=== PATIENT | female | born 1945 | race Caucasian/White ===

== ENCOUNTER 2020-05-23 09:53 | Emergency (ER) | payer MEDICARE, SELFPAY ==
--- NOTE | ~2020-05-23 | XR_ITS ---
EXAMINATION: XR chest 2V DATE: 05/23/2020 10:53 INDICATION: Dizziness TECHNIQUE: PA and lateral views of the chest were obtained. COMPARISON: None FINDINGS: Upper expansion of the lungs with flattening of the diaphragm. No focal airspace opacities, pulmonary edema, pleural effusion or pneumothorax. The cardiomediastinal silhouette is normal. Mild thoracic s pondylosis. IMPRESSION: 1. Hyperexpansion of of the clear lungs which could be related to age or COPD. Reviewed, dictated and finalized at location A.
--- NOTE | ~2020-05-23 | CT_ITS ---
EXAMINATION: CTA BRAIN/CAROTID DATE: 05/23/2020 13:22 INDICATION: Dizziness TECHNIQUE: Computed tomographic angiography (CTA) of the head and neck was performed with 100 mL Omni paque-350 intravenous contrast. Multiplanar reconstructions and maximum intensity projection 3D-recon structions of the carotid arteries and of the intracranial arteries were created by the technologist on a separate workstation. Precontrast CT of the head was also obtained. Automated exposure control and iterative reconstruction technique were employed.The dose-length product was 1564.52 mGy-cm. COMPARISON: None. FINDINGS: Carotid arteries: There is minimal atherosclerotic plaque with 0% stenosis of the right carotid bulb relative to normal distal artery lumen diameter (NASCET criteria). There is minimal atherosclerotic plaque with 0% sten osis of the left carotid bulb relative to normal distal artery lumen diameter. Mild biapical pleural- parenchymal scarring. Moderate cervical spondylosis. Cervical soft tissues are unremarkable. Head: No acute intracranial hemorrhage, acute infarction or abnormal extra axial fluid collection. Ventricl es are normal and symmetric. No mass/mass effect. Large expansile periapical erosion at the anterior left maxillary molar which appears to have eroded and is now in contiguity with the nearly completely opacified left maxillary sinus. There is increased attenuation along the surface of the thickened mu cosa and which along with thickened sclerotic ramos to the left maxillary sinus would be consistent w ith chronic sinusitis. The orbits and mastoid air cells are normal. Intracranial arteries There is no hemodynamically significant stenosis in the vertebral, basilar and internal carotid arter ies. Vertebral arteries are codominant. There are no aneurysms identified. Both A1 and P1 segments a re patent. There are patent anterior communicating and left posterior communicating arteries. Cerebra l arterial arborization appears symmetric. IMPRESSION: 1. 0% stenosis of the right and left carotid bulbs relative to normal distal artery lumen diameter (N ASCET criteria). 2. Normal brain with normal cerebral angiogram. 3. Chronic left maxillary sinusitis which may be related to erosion into the sinus of a large periapi sissy lucency surrounding the posterior most left maxillary molar. Reviewed, dictated and finalized at location A. IMPRESSION: 1. 0% stenosis of the right and left carotid bulbs relative to normal distal ar marco lumen diameter (NASCET criteria). 2. Normal brain with normal cerebral angiogram. 3. Chronic left maxillary sinusitis which may be related to erosion into the si nus of a large periapical lucency surrounding the posterior most left maxillary molar.
[2020-05-23 10:01] VITALS: BP 129/65; PULSE 90; RESP 18; TEMP 36.8; O2SAT 99
--- NOTE | 2020-05-23 10:31 | ECG_ITS ---
Measurements Intervals [place] Rate: 70 P: 71 [place]: 161 QRS: 50 QRSD: 90 T: 47 QT: 376 QTc: 406 Interpretive Statements SINUS RHYTHM NORMAL ECG Electronically Signed On 05-23-2020 12:57:05 CDT by Pb Gupta D.O.
[2020-05-23 11:10] LABS: Basophils Absolute Auto 0.1 K/mm3 (0.0-0.1); Basophils Percent Auto 0.8 % (0.2-1.2); Eosinophils Absolute Auto 0.1 K/mm3 (0-0.3); Eosinophils Percent Auto 1.8 % (0-4.4); Hematocrit 40.7 % (37.0-47.0); Immature Granulocyte Absolute 0.02 K/mm3 (0.00-0.031); Immature Granulocyte Percent A 0.3 % (0-0.5); Lymphocytes Absolute Auto 1.61 K/mm3 (0.9-3.2); Lymphocytes Percent Auto 24.8 % (18.3-44.2); Mean Corpuscular HGB Conc 31.9 g/dl (32-36); Mean Corpuscular Hemoglobin 31.6 pg (26-34); Mean Corpuscular Volume 98.8 fl (80-100); Mean Platelet Volume 10.9 fl (7.4-10.4); Monocytes Absolute Auto 0.8 K/mm3 (0.1-0.6); Monocytes Percent Auto 12.5 % (2.6-8.5); Neutrophils Absolute Auto 3.9 K/mm3 (1.3-6.7); Neutrophils Percent Auto 59.8 % (45.5-73.1); Platelet Count Result 291 k/mm3 (150-375); Red Blood Count 4.12 M/mm3 (4.2-5.4); White Blood Count 6.5 K/mm3 (4.5-10.0)
[2020-05-23 11:23] LABS: Blood Urea Nitrogen 14 mg/dL (7-17); Calcium 9.1 mg/dL (8.4-10.2); Carbon Dioxide 25 mmol/L (22-30); Chloride 107 mmol/L (98-107); Estimated CRCL calculation 71 ml/min; Estimated Glomerular Filt Rate > 60; Glucose 122 mg/dL (65-105); Potassium 3.9 mmol/L (3.4-5.0); Sodium 139 mmol/L (137-145)
[2020-05-23 11:44] VITALS: BP 146/80; PULSE 87; RESP 18; TEMP 36.4; O2SAT 99
[2020-05-23 11:49] VITALS: BP 134/70; PULSE 78
[2020-05-23 11:50] VITALS: BP 146/80; BP 154/72; PULSE 87; PULSE 99
--- NOTE | 2020-05-23 12:39 | ED.GENADULT ---
HPI - General Adult General Chief complaint: Dizziness Stated complaint: dizziness Time Seen by Provider: 05/23/20 12:12 History of Present Illness HPI narrative: Patient is a 74 y/o female complaining of moderate dizziness for last 2 days. She states that she feels unsteady and feels like she is having trouble walking. She did not pass out or fall. She had some room spinning sensation 2 days ago, but not currently. There is no alleviating or exacerbating factor. She has no headache, neck pain, focal weakness or numbness. Related Data Allergies Allergy/AdvReac Type Severity Reaction Status Date / Time Penicillins Allergy Rash Verified 05/23/20 11:24 Review of Systems Constitutional: Constitutional: Denies chills, Denies fever(s), Denies headache(s) and Denies weakness Eyes: Eyes: Denies blurry vision ENT: Denies headache(s) and Denies neck pain Cardiovascular: Cardiovascular: Denies chest pain and Denies dyspnea Respiratory: Respiratory: Denies cough and Denies dyspnea Gastrointestinal: Gastrointestinal: Denies abdominal pain, Denies diarrhea, Denies nausea and Denies vomiting Genitourinary: Genitourinary: Denies hematuria and Denies dysuria Musculoskeletal: Musculoskeletal: Denies back pain and Denies neck pain Neurologic: Denies headache(s) and Denies weakness [facility] Social History Social History Gender identity (if verbalized by the patient): Female Exam Const: General: no acute distress and well developed Orientation/consciousness: oriented to person, oriented to place, oriented to time and patient oriented x3 HENMT: Head: normocephalic Ears: external ears normal General nose exam: Normal external nose present Eyes: General: appearance normal, both eyes and all related structures Conjunctivae: conjunctivae normal Neck: Neck: normal visual inspection and full ROM Chest: Chest palpation & inspection: normal inspection of the chest and no tenderness Resp: Effort & Inspection: normal respiratory effort and able to speak in complete sentences Cardio: Rate: regular rate Rhythm: regular rhythm GI: GI Palp: No abdominal tenderness and Yes Soft to palpation Skin: General skin exam: normal color and turgor normal Neuro: General: oriented to person, oriented to place, oriented to time and patient oriented x3 Cranial nerves: Yes CN's II-XII intact bilaterally Cognition (Neuro): normal cognition Speech: normal speech Motor exam (neuro): 5/5 motor strength present throughout Sensory Exam: normal sensation Coordination: [id number] test normal and [id number] test normal Extrem: General: normal to inspection, full ROM and no pedal edema Psych: Appearance: grossly normal Mental Status: mental status grossly normal Affect: normal affect Course Vital Signs Vital signs: Vital Signs Temperature 36.8 C 05/23/20 10:01 Pulse Rate 90 05/23/20 10:01 Respiratory Rate 18 05/23/20 10:01 Blood Pressure 129/65 05/23/20 10:01 Pulse Oximetry 99 05/23/20 10:01 Temperature 36.4 C L 05/23/20 13:31 Pulse Rate 63 05/23/20 13:31 Respiratory Rate 13 05/23/20 13:31 Blood Pressure 151/69 H 05/23/20 13:31 Pulse Oximetry 100 05/23/20 13:31 Medical Decision Making Vital Signs Vital Signs: Vital Signs Temperature 36.8 C 05/23/20 10:01 Pulse Rate 90 05/23/20 10:01 Respiratory Rate 18 05/23/20 10:01 Blood Pressure 129/65 05/23/20 10:01 Pulse Oximetry 99 05/23/20 10:01 Temperature 36.4 C L 05/23/20 13:31 Pulse Rate 63 05/23/20 13:31 Respiratory Rate 13 05/23/20 13:31 Blood Pressure 151/69 H 05/23/20 13:31 Pulse Oximetry 100 05/23/20 13:31 Lab Data Result diagrams: 05/23/20 11:03 05/23/20 11:03 Labs: Lab Results 05/23/20 05/23/20 Range/Units 11:03 11:03 WBC 6.5 (4.5-10.0) K/mm3 RBC 4.12 L (4.2-5.4) M/mm3 Hgb 13.0 (12.0-15.0) g/dL Hct 40.7
[2020-05-23] MEDS: SODIUM CHLORIDE 0.9% IV 1,000 ML 999 ML IV CONT (13:25)
[2020-05-23] MEDS: MECLIZINE HCL 25 MG TABLET PO (13:25)
[2020-05-23 13:31] VITALS: BP 151/69; PULSE 63; RESP 13; TEMP 36.4; O2SAT 100
[2020-05-23 14:59] VITALS: BP 158/89; PULSE 80; RESP 15; TEMP 37; O2SAT 100
== END 2020-05-23 14:59 | disposition home or self-care (01) ==
PROVIDERS: Emergency Medicine; Emergency Provider Emergency Medicine; PCP Nurse Practitioner
DX: R42 Dizziness and giddiness (principal)
CPT/HCPCS: 36415; 70496; 70498; 71046; 80048; 85025; 93005; 96360; 99284; A9270; J7030; Q9967

== ENCOUNTER 2023-05-17 10:50 | Emergency (ER) | payer MEDICARE, SELFPAY ==
[2023-05-17 11:05] VITALS: BP 148/72; PULSE 72; RESP 18; TEMP 36.3; O2SAT 100
--- NOTE | 2023-05-17 11:08 | ED.DIZZY ---
HPI - Dizziness General Chief Complaint: Dizziness Stated Complaint: dizziness Time Seen by Provider: 05/17/23 11:08 Source: patient Mode of arrival: ambulatory Limitations: no limitations History of Present Illness HPI Narrative: 77-year-old female with history of MS presents with complaint of dizziness for the past 5 days. Patient reports no previous history of similar dizziness. States that she is very active and has been busy. She sat outside for several hours for a graduation republican, dizziness started the next day. States that she is drinking plenty of water and does not feel that is dehydration. She denies headache, ear pain, sinus symptoms. Denies nausea vomiting diarrhea. When ambulatory patient is grabbing on to ramos, furniture to keep her balance. When asked if she feels that she is spinning of the room spinning she states both . She is alert and talkative. Denies numbness, weakness to extremities. No slurred speech. She sees a neurologist for her MS and her next appointment is in June. All systems reviewed and negative except as noted above. Related Data Home Medications Medication Instructions Recorded Confirmed calcium carbonate 600 mg calcium 600 mg PO BID 11/03/21 05/17/23 (1,500 mg) tablet (Calcium) lovastatin 40 mg tablet 40 mg PO DAILY 11/03/21 05/17/23 mecobalamin (vitamin B12) 1,000 2,000 mcg PO .COMPLEX 11/03/21 05/17/23 mcg chewable tablet (B12 Active) teriflunomide 14 mg tablet 14 mg PO DAILY 05/17/23 05/17/23 (Aubagio) Allergies Allergy/AdvReac Type Severity Reaction Status Date / Time Penicillins Allergy Rash Verified 05/17/23 11:58 Review of Systems Review of Systems: CONSTITUTIONAL: Denies fever, chills, or sweats. EYES: Denies visual changes, redness, or discharge. ENT: Denies rhinorrhea, congestion, sore throat, or otalgia. CARDIOVASCULAR: Denies chest pain, palpitations, or edema. RESPIRATORY: Denies cough or dyspnea. GASTROINTESTINAL: Denies abdominal pain, nausea, vomiting, or diarrhea. GENITOURINARY: Denies dysuria or hematuria. SKIN: Denies rash or itching. MUSCULOSKELETAL: Denies back pain, joint pain, or myalgia. NEUROLOGIC: Denies headache, numbness, or weakness. Reports dizziness. PSYCHIATRIC: Denies anxiety or depression. All other systems reviewed are negative, except as documented in HPI. 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 Gender identity (if verbalized by the patient): Female Comments At time of signature, agree with nursing past medical, surgical, social and family history. There is no relevant family history pertinent to the presenting complaint. Exam Narrative: GENERAL: This is a well-nourished, well-developed patient, in no apparent distress. HEAD: normocephalic, atraumatic. EYES: PERRL. Sclera clear/white. Normal extraocular motions. EARS: External ears normal, auditory canals clear and without drainage, TMs normal without perforation. Hearing grossly intact. NOSE: External nose normal with no obvious nasal discharge, nares without redness, no rhinorrhea. THROAT: Mucous membranes moist, posterior pharynx clear. NECK: Neck supple, non-tender without lymphadenopathy, masses or thyromegaly. CARDIOVASCULAR: Regular rate and rhythm without murmurs, gallops, or rubs. RESPIRATORY: Clear to auscultation. Breath sounds equal bilaterally. No wheezes, rales, or rhonchi. SKIN: warm, Dry, intact with no suspicious lesions or rash, good texture and turgor. NEURO: awake, alert, and oriented to person, place and time. There were no o
--- NOTE | 2023-05-17 11:19 | ECG_ITS ---
Measurements Intervals [place] Rate: 77 P: 68 [place]: 156 QRS: 35 QRSD: 90 T: 42 QT: 382 QTc: 435 Interpretive Statements SINUS RHYTHM RIGHT ATRIAL ENLARGEMENT BORDERLINE ECG COMPARED TO ECG 05/23/2020 10:31:41 NO SIGNIFICANT CHANGES Electronically Signed On 05-18-2023 16:53:09 CDT by Grabiel Herrmann M.D.
== END 2023-05-17 11:32 | disposition short-term general hospital (02) ==
PROVIDERS: Emergency Provider Nurse Practitioner Family; PCP Nurse Practitioner Family
DX: R42 Dizziness and giddiness (principal); M17.12 Unilateral primary osteoarthritis, left knee; G35 Multiple sclerosis
CPT/HCPCS: 93005; 99213; G0463

== ENCOUNTER 2023-05-17 11:53 | Emergency (ER) | payer MEDICARE, SELFPAY ==
[2023-05-17] VITALS (9 sets, daily range): BP systolic 130–197; BP diastolic 66–89; PULSE 70–88; RESP 15–20; TEMP 36.2; O2SAT 99–100
--- NOTE | ~2023-05-17 | XR_ITS ---
EXAMINATION: XR chest 2V DATE: 05/17/2023 15:53 INDICATION: Weakness and dizziness TECHNIQUE: PA and lateral views of the chest are obtained. COMPARISON: 05/23/2020 FINDINGS: The lungs are free of acute opacities. There is symmetric scarring of the lung apices. No p leural effusion or pneumothorax. The cardiomediastinal silhouette is normal. There is moderate thorac ic spondylosis. IMPRESSION: 1. No acute cardiopulmonary abnormality. Reviewed, dictated and finalized at location L.
--- NOTE | ~2023-05-17 | CT_ITS ---
EXAMINATION: CTA BRAIN/CAROTID DATE: 05/17/2023 14:55 INDICATION: Vertigo. Off balance. TECHNIQUE: Computed tomographic angiography (CTA) of the head and neck was performed with 100 mL Omni paque-350 intravenous contrast. Multiplanar reconstructions and maximum intensity projection 3D-recon structions of the carotid arteries and of the intracranial arteries were created by the technologist on a separate workstation. Precontrast CT of the head was also obtained. Automated exposure control and iterative reconstruction technique were employed.The dose-length product was 1472.39 mGy-cm. COMPARISON: 05/23/2020 FINDINGS: Carotid arteries: Normal caliber aortic arch with no dissection. There is minimal atherosclerotic plaque with 0% stenos is of the right carotid bulb relative to normal distal artery lumen diameter (NASCET criteria). There is moderate amount of atherosclerotic plaque with 0% stenosis of the left carotid bulb relative to n ormal distal artery lumen diameter. Mild biapical pleural-parenchymal scarring. Cervical soft tissues are unremarkable. Moderate cervical spondylosis. Head: No acute intracranial hemorrhage, acute infarction or abnormal extra axial fluid collection. Ventricl es are normal and symmetric. No mass/mass effect. No abnormally enhancing brain lesions on the postco ntrast imaging. Changes of bilateral intraocular lens replacement. The orbits and mastoid air cells a re normal. Again seen are thickened sclerotic ramos at the margins of the left maxillary sinus which demonstrates marked mucosal thickening and small amount of more central fluid/mucus consistent with c hronic sinusitis. Again seen is a large periapical erosion at the posterior most left maxillary molar s. Intracranial arteries Minimal atherosclerotic plaque at the right carotid siphon. There is no hemodynamically significant s tenosis in the vertebral, basilar and internal carotid arteries. Vertebral arteries are codominant. T here are no aneurysms identified. Both A1 and P1 segments are patent. Patent anterior communicating and left posterior communicating cerebral arteries. Cerebral arterial arborization appears symmetric. IMPRESSION: 1. Small amount of atherosclerotic plaque with 0% stenosis of the right and left carotid bulbs relati ve to normal distal artery lumen diameter (NASCET criteria). 2. Normal brain with normal cerebral CT angiogram. 3. Chronic left maxillary sinusitis which may be related to erosion at the sinus of a large periapica l lucency surrounding the posterior most left maxillary molar. Reviewed, dictated and finalized at location A. IMPRESSION: 1. Small amount of atherosclerotic plaque with 0% stenosis of the right and lef t carotid bulbs relative to normal distal artery lumen diameter (NASCET criteri a). 2. Normal brain with normal cerebral CT angiogram. 3. Chronic left maxillary sinusitis which may be related to erosion at the sinu s of a large periapical lucency surrounding the posterior most left maxillary m olar.
--- NOTE | 2023-05-17 12:01 | ECG_ITS ---
Measurements Intervals [place] Rate: 70 P: 62 [place]: 165 QRS: 24 QRSD: 86 T: 45 QT: 380 QTc: 411 Interpretive Statements SINUS RHYTHM WITHIN NORMAL LIMITS COMPARED TO ECG 05/17/2023 11:27:41 NO SIGNIFICANT CHANGES Electronically Signed On 05-18-2023 16:54:46 CDT by Grabiel Herrmann M.D.
[2023-05-17 14:01] LABS: Appearance Urine Clear (Clear); Bacteria Urine 4+ /hpf; Bilirubin Urine Negative (Negative); Blood Urine Negative (Negative); Color Urine Yellow (Yellow); Glucose Urine UA Negative (Negative); Ketones Urine Negative (Negative); Leukocyte Esterase Ur 1+ LEU/UL (Negative); Need Manual Microscopic Reviewed; Nitrate Urine Positive (Negative); Non Pathogenic Casts 0-2; Protein Urine Negative (Negative); RBC Urine 0-2 /hpf (0-2); Specific Grav Ur 1.011 (1.001-1.035); Squamous Epithelial Cell Urine None seen /hpf (Few); Urobilinogen Urine 0.2 mg/dL (<2.0); WBC Urine 0-5 /hpf; pH Urine 6.5 (5.0-9.0)
[2023-05-17 14:02] LABS: Add Urine Microscopic? YES
--- NOTE | 2023-05-17 14:12 | ED.DIZZY ---
HPI - Dizziness General Chief Complaint: Dizziness Stated Complaint: dizzy Time Seen by Provider: 05/17/23 13:48 History of Present Illness HPI Narrative: Patient is a 77-year-old female with a history of multiple sclerosis presenting with dizziness. Patient states that for the last 4 to 5 days she has had vertigo especially with positional changes. States that she notices it most whenever she gets up at night. States that she has also been feeling somewhat off balance. She went to urgent care today who advised that she come to the ER for blood work. Currently, she denies complaints. No numbness or weakness. No facial droop. No speech changes. No pain. No recent injuries. States that she has been outside in the heat a lot with her granddaughter who is visiting. Related Data Home Medications Medication Instructions Recorded Confirmed calcium carbonate 600 mg calcium 600 mg PO BID 11/03/21 05/17/23 (1,500 mg) tablet (Calcium) lovastatin 40 mg tablet 40 mg PO DAILY 11/03/21 05/17/23 mecobalamin (vitamin B12) 1,000 2,000 mcg PO .COMPLEX 11/03/21 05/17/23 mcg chewable tablet (B12 Active) teriflunomide 14 mg tablet 14 mg PO DAILY 05/17/23 05/17/23 (Aubagio) Allergies Allergy/AdvReac Type Severity Reaction Status Date / Time Penicillins Allergy Rash Verified 05/17/23 12:12 Review of Systems Review of Systems: All systems reviewed & are unremarkable except as noted in HPI and below PMFSH Past Medical History Medical History Left knee DJD Multiple sclerosis Social History Social History Smoking status: Never smoker Alcohol intake: current Drinks per week: 3 Substance use: never Living arrangements: with family Occupation/Education: retired 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 Gender identity (if verbalized by the patient): Female Exam Narrative: GENERAL: Well-appearing, well-nourished, and in no acute distress. HEAD: Normocephalic, atraumatic. EYES: PERRLA and EOMI. ENT: Nares clear, no rhinorrhea or epistaxis. Mucous membranes moist. NECK: Supple. CHEST: Clear to auscultation. No respiratory distress. HEART: Regular rate and rhythm. No murmur heard. Normal peripheral pulses. ABDOMEN: Soft, nontender, nondistended EXTREMITIES: Normal range of motion. No edema. SKIN: Warm, dry, no rash. NEURO: No focal deficits. Alert and oriented x3. No pronator drift, coordination is intact PSYCH: Normal mood and affect. Course Vital Signs Vital signs: Vital Signs Temperature 97.1 F L 05/17/23 11:54 Pulse Rate 79 05/17/23 11:54 Respiratory Rate 18 05/17/23 11:54 Blood Pressure 134/66 05/17/23 11:54 Pulse Oximetry 100 05/17/23 11:54 Oxygen Delivery Room Air 05/17/23 11:54 Temperature 97.1 F L 05/17/23 11:54 Pulse Rate 80 05/17/23 17:39 Respiratory Rate 17 05/17/23 17:39 Blood Pressure 145/88 H 05/17/23 17:39 Pulse Oximetry 100 05/17/23 17:39 Oxygen Delivery Room Air 05/17/23 11:54 MDM - Dizziness MDM Narrative Medical decision making narrative: Patient is a 77-year-old female presenting with 5 days of intermittent vertigo. Vitals within normal limits. Exam is unremarkable. Neurologically intact. EKG per my interpretation shows normal sinus rhythm, normal axis and intervals, no ST elevations or depressions. Blood work is unremarkable. UA looks to be infected, it is not contaminated. She has been covered with Keflex. Orthostatic vital signs are negative. CTA shows no acute abnormalities. There are no occlusions or stenoses. No evidence of evolving infarct. Patient does report 5 days of the symptoms, if it was central in nature I would expect to see changes on her CT. On reevaluation, the patient states that she does feel improved. States that she might still have a little bit of v
[2023-05-17 14:18] LABS: Basophils Absolute Auto 0.1 K/mm3 (0.0-0.1); Basophils Percent Auto 0.6 % (0.2-1.2); Eosinophils Absolute Auto 0.2 K/mm3 (0-0.3); Hematocrit 43.4 % (37.0-47.0); Hemoglobin 13.5 g/dL (12.0-15.0); Immature Granulocyte Absolute 0.02 K/mm3 (0.00-0.031); Immature Granulocyte Percent A 0.3 % (0-0.5); Lymphocytes Absolute Auto 2.11 K/mm3 (0.9-3.2); Lymphocytes Percent Auto 26.4 % (18.3-44.2); Mean Corpuscular HGB Conc 31.1 g/dl (32-36); Mean Corpuscular Hemoglobin 30.4 pg (26-34); Mean Corpuscular Volume 97.7 fl (80-100); Mean Platelet Volume 10.4 fl (7.4-10.4); Monocytes Percent Auto 12.4 % (2.6-8.5); Neutrophils Absolute Auto 4.7 K/mm3 (1.3-6.7); Neutrophils Percent Auto 58.3 % (45.5-73.1); Platelet Count Result 381 k/mm3 (150-375); Red Blood Count 4.44 M/mm3 (4.2-5.4); Red Cell Distribution Width 13.4 % (11.5-14.5)
[2023-05-17] MEDS: SODIUM CHLORIDE 0.9% IV 1,000 ML 999 ML IV CONT (14:24)
[2023-05-17] MEDS: MECLIZINE HCL 25 MG TABLET PO (14:24)
[2023-05-17 14:30] LABS: Alanine Aminotransferase 22 U/L (6-35); Albumin Level 4.4 g/dL (3.5-5.1); Alkaline Phosphatase 83 U/L (38-126); Anion Gap 8 mmol/L (8-16); Aspartate Amino Transferase 28 U/L (14-36); Bilirubin,Total 0.4 mg/dL (0.2-1.3); Blood Urea Nitrogen 14 mg/dL (7-17); Calcium 9.8 mg/dL (8.4-10.2); Carbon Dioxide 31 mmol/L (22-30); Chloride 102 mmol/L (98-107); Estimated CRCL calculation 55 ml/min; Estimated Glomerular Filt Rate > 60; Glucose 99 mg/dL (65-110); Potassium 3.8 mmol/L (3.4-5.0); Sodium 141 mmol/L (137-145)
[2023-05-17 14:41] LABS: Troponin I < 0.012 ng/mL (0.000-0.034)
[2023-05-17 14:47] LABS: Prothrombin Time 13.4 Seconds (11.1-14.7)
[2023-05-17 14:48] LABS: Partial Thromboplastin Time 32.7 SECONDS (22.3-36.8)
--- NOTE | 2023-05-17 15:48 | PC.NURSE ---
Pt to XRAY via stretcher at this time.
[2023-05-17] MEDS: CEPHALEXIN 500 MG CAPSULE PO (17:31)
--- NOTE | 2023-05-17 17:39 | PC.NURSE ---
called dietary and ordered dinner tray for pt at this time, per EDP Dr Lennie MUELLER
== END 2023-05-17 18:20 | disposition home or self-care (01) ==
PROVIDERS: Emergency Provider Emergency Medicine; PCP Nurse Practitioner Family
DX: N39.0 Urinary tract infection, site not specified (principal); R42 Dizziness and giddiness; G35 Multiple sclerosis; M17.12 Unilateral primary osteoarthritis, left knee; J32.0 Chronic maxillary sinusitis
CPT/HCPCS: 36415; 70496; 70498; 71046; 80053; 81001; 84484; 85025; 85610; 85730; 93005; 96360; 99284; A9270; J7030; Q9967

== ENCOUNTER 2023-05-26 00:42 | Emergency (ER) | payer MEDICARE, SELFPAY ==
[2023-05-26 00:43] VITALS: BP 130/66; PULSE 77; RESP 14; TEMP 36.2; O2SAT 98
--- NOTE | 2023-05-26 01:08 | ECG_ITS ---
Measurements Intervals [place] Rate: 63 P: 62 [place]: 179 QRS: 22 QRSD: 90 T: 35 QT: 394 QTc: 404 Interpretive Statements SINUS RHYTHM BASELINE ARTIFACT- I, II, AVR, AVL NORMAL ECG COMPARED TO ECG 05/17/2023 12:10:00 NO SIGNIFICANT CHANGES Electronically Signed On 05-26-2023 7:24:32 CDT by Pb Gupta D.O.
[2023-05-26] MEDS: MECLIZINE HCL 25 MG TABLET PO (01:18)
[2023-05-26 01:35] LABS: Basophils Absolute Auto 0.1 K/mm3 (0.0-0.1); Basophils Percent Auto 0.7 % (0.2-1.2); Eosinophils Absolute Auto 0.2 K/mm3 (0-0.3); Eosinophils Percent Auto 2.9 % (0-4.4); Immature Granulocyte Absolute 0.01 K/mm3 (0.00-0.031); Immature Granulocyte Percent A 0.1 % (0-0.5); Lymphocytes Absolute Auto 2.23 K/mm3 (0.9-3.2); Lymphocytes Percent Auto 29.2 % (18.3-44.2); Mean Corpuscular HGB Conc 31.7 g/dl (32-36); Mean Corpuscular Hemoglobin 30.7 pg (26-34); Mean Corpuscular Volume 96.9 fl (80-100); Mean Platelet Volume 10.3 fl (7.4-10.4); Monocytes Percent Auto 13.5 % (2.6-8.5); Neutrophils Absolute Auto 4.1 K/mm3 (1.3-6.7); Neutrophils Percent Auto 53.6 % (45.5-73.1); Platelet Count Result 342 k/mm3 (150-375); Red Blood Count 4.23 M/mm3 (4.2-5.4); Red Cell Distribution Width 13.4 % (11.5-14.5); White Blood Count 7.7 K/mm3 (4.5-10.0)
[2023-05-26 01:43] LABS: Appearance Urine Clear (Clear); Bilirubin Urine Negative (Negative); Blood Urine Negative (Negative); Color Urine Yellow (Yellow); Glucose Urine UA Negative (Negative); Ketones Urine Negative (Negative); Leukocyte Esterase Ur Negative LEU/UL (Negative); Nitrate Urine Negative (Negative); Protein Urine Negative (Negative); Specific Grav Ur 1.013 (1.001-1.035); Urobilinogen Urine 0.2 mg/dL (<2.0)
[2023-05-26 01:48] LABS: Alanine Aminotransferase 26 U/L (6-35); Alkaline Phosphatase 71 U/L (38-126); Anion Gap 4 mmol/L (8-16); Aspartate Amino Transferase 33 U/L (14-36); Bilirubin,Total 0.3 mg/dL (0.2-1.3); Blood Urea Nitrogen 16 mg/dL (7-17); Calcium 9.1 mg/dL (8.4-10.2); Carbon Dioxide 28 mmol/L (22-30); Chloride 106 mmol/L (98-107); Estimated CRCL calculation 65 ml/min; Estimated Glomerular Filt Rate > 60; Glucose 106 mg/dL (65-110); Magnesium 2.2 mg/dL (1.6-2.3); Potassium 3.9 mmol/L (3.4-5.0); Sodium 138 mmol/L (137-145)
[2023-05-26 02:08] LABS: Add Urine Microscopic? NO
--- NOTE | 2023-05-26 02:11 | ED.GENADULT ---
HPI - General Adult General Chief complaint: Dizziness Stated complaint: dizzy Time Seen by Provider: 05/26/23 00:52 History of Present Illness HPI narrative: Patient 77-year-old female who presents the emergency department with chief complaint of dizziness. Patient reports that she was seen in the emergency department recently had a CTA of her head and neck that did not show any acute intercranial pathology but the patient was later on told by her primary doctor that she has a sinus infection on the CT scan and has a lucency by one of her teeth and recommended that she follow-up with a dentist patient states she is been very worried about this and reports that she has not been taking her Antivert that she was prescribed for vertigo the patient states that she feels very anxious and feels as though she was worried that she may because of what she was told by her doctor. The patient denies fever denies chest pain denies shortness of breath patient does report that the symptoms of the dizziness are as though the room is spinning and reports that she feels off balance whenever she tries to walk. Related Data Home Medications Medication Instructions Recorded Confirmed calcium carbonate 600 mg calcium 600 mg PO BID 11/03/21 05/17/23 (1,500 mg) tablet (Calcium) lovastatin 40 mg tablet 40 mg PO DAILY 11/03/21 05/17/23 mecobalamin (vitamin B12) 1,000 2,000 mcg PO .COMPLEX 11/03/21 05/17/23 mcg chewable tablet (B12 Active) teriflunomide 14 mg tablet 14 mg PO DAILY 05/17/23 05/17/23 (Aubagio) Allergies Allergy/AdvReac Type Severity Reaction Status Date / Time Penicillins Allergy Rash Verified 05/26/23 00:43 Review of Systems Review of Systems: A 10 system review of systems was completed on the patient and is negative except for what is stated in the HPI. Nursing and ancillary documentation was reviewed. 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 Gender identity (if verbalized by the patient): Female Exam Narrative: GENERAL: Well-appearing, well-nourished, and in no acute distress. HEAD: Normocephalic, atraumatic. EYES: PERRLA and EOMI. ENT: Nares clear, no rhinorrhea or epistaxis. Mucous membranes moist. NECK: Supple. CHEST: Clear to auscultation. No respiratory distress. HEART: Regular rate and rhythm. No murmur heard. Normal peripheral pulses. ABDOMEN: Soft, nontender, nondistended, normal active bowel sounds. EXTREMITIES: Normal range of motion. No edema. SKIN: Warm, dry, no rash. NEURO: No focal deficits. Alert and oriented x3. Symptoms elicited during left Hallpike maneuver PSYCH: Normal mood and affect. Course Vital Signs Vital signs: Vital Signs Temperature 36.2 C L 05/26/23 00:43 Pulse Rate 77 05/26/23 00:43 Respiratory Rate 14 05/26/23 00:43 Blood Pressure 130/66 05/26/23 00:43 Pulse Oximetry 98 05/26/23 00:43 Oxygen Delivery Room Air 05/26/23 00:43 Temperature 36.2 C L 05/26/23 00:43 Pulse Rate 77 05/26/23 00:43 Respiratory Rate 14 05/26/23 00:43 Blood Pressure 130/66 05/26/23 00:43 Pulse Oximetry 98 05/26/23 00:43 Oxygen Delivery Room Air 05/26/23 00:43 Medical Decision Making [facility] Narrative Medical decision making narrative: Differential diagnosis includes vertigo, electrolyte abnormality, UTI Laboratory studies were obtained on the patient which showed a normal CBC electrolytes are within normal limits urinalysis showed no evidence of current UTI. The patient was given Antivert in the emergency
== END 2023-05-26 03:21 | disposition home or self-care (01) ==
PROVIDERS: Emergency Provider Emergency Medicine; PCP Nurse Practitioner Family
DX: H81.10 Benign paroxysmal vertigo, unspecified ear (principal)
CPT/HCPCS: 36415; 80053; 81003; 83735; 85025; 93005; 99283; A9270

== ENCOUNTER 2023-08-20 14:38 | Outpatient (CLI) | payer MEDICARE, SELFPAY ==
--- NOTE | 2023-08-20 14:53 | ECG_ITS ---
Measurements Intervals [place] Rate: 75 P: 69 [place]: 166 QRS: 39 QRSD: 88 T: 49 QT: 363 QTc: 406 Interpretive Statements SINUS RHYTHM COMPARED TO ECG 05/26/2023 01:21:45 NO SIGNIFICANT CHANGES Electronically Signed On 08-21-2023 12:10:03 CDT by Ivania Gama M.D.
[2023-08-20 15:21] LABS: Basophils Absolute Auto 0.1 K/mm3 (0.0-0.1); Basophils Percent Auto 0.7 % (0.2-1.2); Eosinophils Absolute Auto 0.2 K/mm3 (0-0.3); Eosinophils Percent Auto 2.6 % (0-4.4); Hematocrit 41.8 % (37.0-47.0); Hemoglobin 12.6 g/dL (12.0-15.0); Immature Granulocyte Absolute 0.02 K/mm3 (0.00-0.031); Immature Granulocyte Percent A 0.3 % (0-0.5); Lymphocytes Absolute Auto 1.84 K/mm3 (0.9-3.2); Lymphocytes Percent Auto 25.7 % (18.3-44.2); Mean Corpuscular HGB Conc 30.1 g/dl (32-36); Mean Corpuscular Hemoglobin 30.4 pg (26-34); Mean Corpuscular Volume 100.7 fl (80-100); Mean Platelet Volume 11.4 fl (7.4-10.4); Monocytes Absolute Auto 1.2 K/mm3 (0.1-0.6); Monocytes Percent Auto 16.3 % (2.6-8.5); Neutrophils Absolute Auto 3.9 K/mm3 (1.3-6.7); Neutrophils Percent Auto 54.4 % (45.5-73.1); Platelet Count Result 298 k/mm3 (150-375); Red Blood Count 4.15 M/mm3 (4.2-5.4); Red Cell Distribution Width 13.7 % (11.5-14.5); White Blood Count 7.2 K/mm3 (4.5-10.0)
[2023-08-20 15:25] LABS: Appearance Urine Clear (Clear); Bacteria Urine 1+ /hpf; Bilirubin Urine Negative (Negative); Blood Urine Negative (Negative); Color Urine Yellow (Yellow); Glucose Urine UA Negative (Negative); Ketones Urine Negative (Negative); Leukocyte Esterase Ur Negative LEU/UL (Negative); Nitrate Urine Positive (Negative); Non Pathogenic Casts 0-2; Protein Urine Negative (Negative); RBC Urine 0-2 /hpf (0-2); Squamous Epithelial Cell Urine None seen /hpf (Few); Urobilinogen Urine 0.2 mg/dL (<2.0); WBC Urine 0-5 /hpf; pH Urine 5.5 (5.0-9.0)
[2023-08-20 15:28] LABS: Add Urine Microscopic? YES
[2023-08-20 15:31] LABS: Anion Gap 8 mmol/L (8-16); Blood Urea Nitrogen 17 mg/dL (7-17); Calcium 9.6 mg/dL (8.4-10.2); Carbon Dioxide 28 mmol/L (22-30); Chloride 104 mmol/L (98-107); Estimated Glomerular Filt Rate > 60; Glucose 104 mg/dL (65-110); Potassium 3.9 mmol/L (3.4-5.0); Sodium 140 mmol/L (137-145)
== END 2023-08-20 14:39 | disposition home or self-care (01) ==
PROVIDERS: PCP Nurse Practitioner Family; Visit Provider Orthopaedic Surgery
DX: M17.12 Unilateral primary osteoarthritis, left knee (principal); G35 Multiple sclerosis; I10 Essential (primary) hypertension
CPT/HCPCS: 36415; 80048; 81001; 85025; 93005

== ENCOUNTER 2023-09-18 12:05 | Outpatient (CLI) | payer MEDICARE, SELFPAY ==
[2023-09-18 13:42] LABS: INR 0.9; Prothrombin Time 12.5 Seconds (11.1-14.7); Urine Cotinine NEGATIVE
[2023-09-18 13:43] LABS: Albumin Level 4.4 g/dL (3.5-5.1); Hemoglobin A1C 5.4 % (<5.7); Partial Thromboplastin Time 29.8 SECONDS (22.3-36.8)
== END 2023-09-18 12:06 | disposition home or self-care (01) ==
LOC: ANHSURGERY 12:12
PROVIDERS: Visit Provider Orthopaedic Surgery
DX: Z01.818 Encounter for other preprocedural examination (principal); M17.12 Unilateral primary osteoarthritis, left knee
CPT/HCPCS: 80307; 82040; 83036; 85610; 85730; 87081

== ENCOUNTER 2023-10-02 00:34 | Day surgery (SDC) | payer MEDICARE, SELFPAY ==
[2023-09-18 12:20] VITALS: BMI 21.4
--- NOTE | 2023-09-18 12:42 | PC.NURSE ---
Report to the Outpatient Waiting Room, entrance under the green pavilion located off [facility], at time _1000 on date __10/02/23 . Planned Procedure Time: _1200 . Time changes happen often and if your time is changed the preop area will call you the afternoon before. - You and your visitor will be asked to self-screen and do not enter if you have any COVID symptoms. - A mask is optional within the hospital at this time. Patients may have clear liquids (water, carbonated beverages, clear teas, apple juice) until 3 hours prior to surgery with a maximum of 20 ounces. - No food from midnight until time of surgery - Infants may have breast milk until 4 hours before surgery, formula 6 hours prior to surgery. - Children will be allowed to drink immediately following surgery. If applicable, please bring a bottle or sippy cup to assist with drinking. Juice, water, soda, and popsicles are readily available. For infants on formula, please bring formula the day of surgery. Pacifiers are allowed. Take the following medications with a SIP of water the morning of surgery: ____TERIFLUNOMIDE DO NOT STOP ANY OF YOUR OTHER PRESCRIPTION MEDICATIONS PRIOR TO SURGERY ?EXCEPT THE FOLLOWING Medications to discontinue per physician ALL VITAMINS AND SUPPLEMENTS 3 DAYS PRE OP.LAST DOSE 09/28/23 Please no make-up, nail gabonese, hairspray, perfume, deodorant, or body powder the day of surgery. No jewelry (including any body piercings) or valuables the day of surgery, leave them at home. Please take a shower or bath the night before, or the morning of, surgery with an antibacterial soap. Wear comfortable, loose fitting clothing. Children are encouraged to wear pajamas. - Jewelry must be removed prior to entering the operating room. Rings and piercings that are not removed may be cut off. - The hospital will not accept responsibility for valuables. - Please leave all valuables, including medications, at home the day of surgery. If you are going home after surgery, a licensed bus driver school must drive you home. - NO public transportation without another adult if you receive anesthesia. - We recommend that an adult stay with you for 24 hours following discharge. - We also recommend that you do not drive, make important decision, drink alcoholic beverages, or take any drugs that were not prescribed by your health care provider for at least 24 hours after your discharge time. For Pediatric surgeries, we recommend two adults accompany the child home. Follow any additional instructions given to you from your surgeon. If you or anyone in your household have experienced Covid symptoms in the past week, please notify your surgeon or the nurse liaison at the phone number below for possible testing. VERBAL AND WRITTEN instructions given to __PATIENT and asked if any additional questions and then verbalized understanding. Patient advised to call surgeon office or pre surgery nurse liaison [phone] if any additional questions.
[2023-09-18 13:09] VITALS: BP 170/72; PULSE 74; RESP 18; TEMP 36.6; O2SAT 98
[2023-10-02] VITALS (16 sets, daily range): BP systolic 125–167; BP diastolic 57–94; PULSE 69–97; RESP 12–20; TEMP 35.8–36.9; O2SAT 98–100
--- NOTE | ~2023-10-02 | XR_ITS ---
EXAMINATION: [id number] DATE: 10/02/2023 14:47 INDICATION: Left knee arthroplasty. Postop. TECHNIQUE: 2 views of left knee were obtained. COMPARISON: Left knee radiographs 08/20/2023 FINDINGS: There is a total left knee arthroplasty without patellar resurfacing in near-anatomic align ment. No fracture. There has been resection of patellar osteophytes. There is gas in the soft tissues , consistent with recent surgery. Skin ines are noted. IMPRESSION: 1. Total left knee arthroplasty in near-anatomic alignment. Reviewed, dictated and finalized at location A. STREAMING FACILITATOR
--- NOTE | 2023-10-02 08:59 | WPDHPUPDATE1 ---
History and Physical Update Update Date/Time: 10/02/23 08:59 History and Physical has been reviewed, including an updated exam of the patient. There are NO changes in the patient's condition. Risks, benefits, and alternatives have been discussed and questions answered. Patient agrees to proceed with procedure.
[2023-10-02] MEDS: LACTATED RINGERS 1,000 ML 30 ML IV CONT ×2 (10:30→14:40)
[2023-10-02] MEDS: ACETAMINOPHEN 500 MG TABLET 1000 MG PO ×2 (10:30→19:38)
[2023-10-02] MEDS: TRANEXAMIC ACID 1,000MG/ISO100 1,000 MG/100 ML BAG 200 MG IVPB (10:59)
--- NOTE | 2023-10-02 12:06 | P.PNAN_ITS ---
Anes - Initial Pre Proc Eval Procedure: Operation Date: 10/02/23 12:00 Proposed Procedures p Left Total Knee Arthroplasty - Kaiden Elkins MD Date/Time: 10/02/23 12:06 Surgeon: Kaiedn Elkins MD Pre Op Diagnosis: Lt Knee DJD Patient Data Age: 78 Gender: F Height: 1.63 m Weight: 55.8 kg Last Vital Signs Temp 36.5 C 10/02/23 11:02 Pulse 94 10/02/23 11:02 Resp 16 10/02/23 11:02 BP 142/69 H 10/02/23 11:02 Pulse Ox 99 10/02/23 11:02 O2 Del Method Room Air 10/02/23 11:02 Allergies Allergy/AdvReac Type Severity Reaction Status Date / Time Penicillins Allergy Rash Verified 10/02/23 11:00 Home Medications Medication Instructions Recorded Confirmed Type calcium carbonate 600 mg calcium 600 mg PO BID 11/03/21 09/24/23 History (1,500 mg) tablet (Calcium) lovastatin 40 mg tablet 40 mg PO DAILY 11/03/21 09/24/23 History mecobalamin (vitamin B12) 1,000 2,000 mcg PO EVERY OTHER DAY 11/03/21 09/24/23 History mcg chewable tablet (B12 Active) teriflunomide 14 mg tablet 14 mg PO DAILY 05/17/23 09/24/23 History (Aubagio) mirabegron 25 mg tablet,extended 25 mg PO DAILY 09/18/23 09/24/23 History release 24 hr (Myrbetriq) chlorhexidine gluconate 4 % 1 applic topical ONCE #237 mL 09/24/23 09/24/23 Rx topical liquid (Hibiclens) Laboratory Tests 10/02/23 10:23 Blood Type O Positive Antibody Screen Negative Patient hx anesthesia problems: none Family hx anesthesia problems: none Results Review: All pre-operative results and documents have been reviewed as part of the pre- operative evaluation. 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 Gender identity (if verbalized by the patient): Female Spiritual care concerns: No Anes - Eval Final PreProcedure Day of Procedure 10/02/23 12:06 Patient weight: normal Heart: regular rate and rhythm Lungs: clear to auscultation Airway: Mallampati scale class II Neurological: alert and oriented Last oral intake: >/= 8 hours ASA classification: II Emergent: no Anesthetic plan: proceed Anesthesia type and monitoring: general LMA and standard monitoring Results Review: All pre-operative results and documents have been reviewed as part of the pre- operative evaluation. Informed Consent: The patient's anesthetic plan of GA with LMA and its attendant risks and benefit s were discussed at length as patient had difficulty understanding sedation and anesthesia with the patient and . Questions were solicited and answers provided to the satisfaction of the patient and .
[2023-10-02] MEDS: ceFAZolin 2 GM/D5W 50 ML 2 GM/50 ML BAG IVPB ×2 (12:27→20:31)
[2023-10-02] MEDS: GENTAMICIN BONE CEMENT REFOBACIN 2 EACH TOPICAL (13:27)
[2023-10-02] MEDS: TRANEXAMIC ACID 1,000 MG/10 ML AMPUL 1000 MG IV PUSH (13:51)
--- NOTE | 2023-10-02 14:42 | W.PM.PROC2 ---
Procedure Note - Detailed Date of Procedure 10/02/23 Pre-op Diagnosis Lt Knee DJD Post-op Diagnosis Same Procedure Performed L TKA Surgeon Kaiden Elkins MD Anesthesia General Description of Procedure THE LEFT KNEE WAS PREPPED AND DRAPED IN THE STERILE FASHION. THERE WAS A 10 DEGREE FLEXION CONTRACTURE. A MIDLINE SKIN INCISION WAS MADE. A MEDIAL PARAPATELLAR ARTHROTOMY WAS MADE. THE PATELLA WAS EVERTED. THERE WAS TRICOMPARTMENT DJD. THERE WAS MINIMAL PATELLA DJD. AN INTRAMEDULLARY RICHARD WAS PLACED IN THE FEMUR. A DISTAL FEMORAL CUT WAS MADE IN 5 DEGREES OF VALGUS REMOVING APPROXIMATELY 9 MM OF BONE FROM THE DISTAL FEMUR. THE FEMUR WAS SIZED TO 62.5. A 62.5 FEMORAL CUTTING BLOCK WAS PLACED IN 3 DEGREES OF EXTERNAL ROTATION AND IN ALIGNMENT WITH ZAIDA'S LINE AND THE TRANSEPICONDYLAR AXIS. ANTERIOR POSTERIOR AND CHAMFER CUTS WERE MADE. THE CUTS WERE EXCELLENT. NEXT AN INTRAMEDULLARY CUTTING GUIDE WAS PLACED IN THE TIBIA. A TRANS TIBIAL CUT WAS MADE ALONG THE LONG AXIS OF THE TIBIA. APPROXIMATELY 10 MM OF BONE WAS REMOVED FROM THE HIGH SIDE OF THE TIBIA. THE TIBIA WAS THEN PLANED TO A SMOOTH SURFACE. POSTERIOR FEMORAL OSTEOPHYTES WERE REMOVED FROM THE FEMORAL CONDYLES. A 71 TIBIAL TRIAL WAS PLACED IN ALIGNMENT WITH THE 1/3 MEDIAL ASPECT OF THE TIBIAL TUBERCLE. THEN A 65 FEMORAL TRIAL COMPONENT WAS PLACED. BOTH HAD EXCELLENT FITS. EVENTUALLY A 10 MM CR POLYETHYLENE TRIAL COMPONENT WAS PLACED. THE KNEE WAS TAKEN THROUGH A RANGE OF MOTION. THE KNEE CAME OUT TO FULL EXTENSION. THERE WAS NO ABNORMAL TILT TO THE PATELLA. THERE WAS GOOD A/P AND VARUS/VALGUS STABILITY. THERE WAS NO EXCESSIVE ROLL BACK WITH FLEXION. THE TRIAL COMPONENTS WERE REMOVED. THEN A 62.5 FEMORAL COMPONENT AND 71 TIBIAL COMPONENT WITH A 10 CR POLYETHYLENE COMPONENT WERE CEMENTED INTO PLACE. ONCE THE CEMENT WAS HARD THE KNEE WAS TAKEN THROUGH A ROM AGAIN AND FOUND TO BE STABLE WITH NO PATELLA TILT NO EXCESSIVE ROLL BACK WITH FLEXION AND GOOD STABILITY WITH COMPLETE AND FULL EXTENSION. THE KNEE WAS IRRIGATED WITH STERILE BETADINE AND WATER FOR ABOUT 3 MINUTES. THE BLEEDERS WERE CAUTERIZED. THE ARTHROTOMY WAS REPAIRED WITH NUMBER 1 VICRYL. THE SUB CUTANEOUS LAYER WITH 2-0 VICRYL AND THE SKIN WITH MADELYN. THE WOUND WAS WASHED AND A STERILE DRESSING WAS APPLIED. PATIENT WAS EXTUBATED. Estimated Blood Loss -150.0 Pathology None sent Complications No immediate complications Condition Stable Disposition PACU
[2023-10-02] MEDS: fentaNYL CITRATE INJ (*CRX) 100 MCG/2 ML VIAL 25 MCG IV PUSH ×2 (14:56→15:20)
--- NOTE | 2023-10-02 16:05 | ADMGEN ---
This patient, Tiana Hernandez, was admitted to 2 Medical Room 260-. Patient/family oriented to hospital policies and general routines including ID bracelet, bed and alarms, visiting hours, pain management, procedures, bathroom and other care routines, personal items, smoking policy, room service/diet, and visiting hours. Information on how to activate the Rapid Response Team has been discussed. Patient/Family are encouraged to report perceived risks to care and to ask questions if they do not understand what they are told or what they should do.
[2023-10-02] MEDS: SODIUM CHLORIDE 0.9% IV 1,000 ML 125 ML IV CONT (17:00)
[2023-10-02] MEDS: SENNA/DOCUSATE SODIUM TABLET 2 TAB PO (17:01)
[2023-10-02] MEDS: oxyCODONE/ACETAMINOPHEN (*CRX) 5-325 MG TABLET 1 TABLET PO (17:01)
[2023-10-02] MEDS: ASPIRIN 325 MG ENTERIC TABLET PO (20:24)
[2023-10-02] MEDS: FAMOTIDINE 20 MG TABLET PO (20:24)
[2023-10-03] MEDS: ceFAZolin 2 GM/D5W 50 ML 2 GM/50 ML BAG IVPB ×2 (03:48→11:26)
[2023-10-03 04:03] VITALS: BP 142/65; PULSE 75; RESP 18; TEMP 36.1; O2SAT 98
[2023-10-03] MEDS: ACETAMINOPHEN 500 MG TABLET 1000 MG PO (04:03)
[2023-10-03 06:20] LABS: Basophils Percent Auto 0.2 % (0.2-1.2); Hematocrit 35.3 % (37.0-47.0); Immature Granulocyte Absolute 0.06 K/mm3 (0.00-0.031); Immature Granulocyte Percent A 0.4 % (0-0.5); Lymphocytes Absolute Auto 1.66 K/mm3 (0.9-3.2); Lymphocytes Percent Auto 10.4 % (18.3-44.2); Mean Corpuscular HGB Conc 31.2 g/dl (32-36); Mean Corpuscular Hemoglobin 30.3 pg (26-34); Mean Corpuscular Volume 97.2 fl (80-100); Mean Platelet Volume 11.3 fl (7.4-10.4); Monocytes Absolute Auto 1.5 K/mm3 (0.1-0.6); Monocytes Percent Auto 9.6 % (2.6-8.5); Neutrophils Absolute Auto 12.7 K/mm3 (1.3-6.7); Neutrophils Percent Auto 79.4 % (45.5-73.1); Platelet Count Result 286 k/mm3 (150-375); Red Blood Count 3.63 M/mm3 (4.2-5.4); Red Cell Distribution Width 13.4 % (11.5-14.5)
[2023-10-03 06:38] LABS: Anion Gap 12 mmol/L (8-16); Blood Urea Nitrogen 16 mg/dL (7-17); Calcium 9.2 mg/dL (8.4-10.2); Carbon Dioxide 21 mmol/L (22-30); Chloride 105 mmol/L (98-107); Estimated CRCL calculation 57 ml/min; Estimated Glomerular Filt Rate > 60; Glucose 119 mg/dL (65-110); Potassium 4.1 mmol/L (3.4-5.0); Sodium 138 mmol/L (137-145)
[2023-10-03 08:51] VITALS: O2SAT 98
[2023-10-03] MEDS: FAMOTIDINE 20 MG TABLET PO (08:51)
[2023-10-03] MEDS: SENNA/DOCUSATE SODIUM TABLET 2 TAB PO (08:51)
[2023-10-03] MEDS: ASPIRIN 325 MG ENTERIC TABLET PO (08:51)
[2023-10-03] MEDS: LOVASTATIN 20 MG TABLET 40 MG PO (08:51)
[2023-10-03 09:42] VITALS: BP 131/50; PULSE 61; RESP 16; TEMP 36.5; O2SAT 100
--- NOTE | 2023-10-03 12:00 | PM.PNORT ---
Progress Note: A&P Assessment and Plan (1) Left knee DJD: Qualifiers: Osteoarthritis type: primary Qualified Code(s): M17.12 - Unilateral primary osteoarthritis, left knee Code(s): M17.12 - Unilateral primary osteoarthritis, left knee Status: Acute Assessment and Plan: POD 1 DOING WELL. SHE HAS IMPROVED PROGRESS WITH PT THIS AFTERNOON. SHE HAS SOME WEAKNESS IN THE LEFT FOOT WITH DORSIFLEXION ONLY. OTHERWISE HER OTHER MUSCLE GROUPS AND SENSATION IS INTACT. THIS MAY BE AN EXACERBATION OF HER MULTIPLE SCLEROSIS. SHE WILL HAVE ANOTHER SESSION WITH PT AND THEN MAY BE DISCHARGED TO HOME IF SHE IS SAFE TO WALK. SHE WILL F/U IN 3 WEEKS. (2) Multiple sclerosis: Code(s): G35 - Multiple sclerosis Status: Acute Subjective Subjective Date/Time Seen: 10/03/23 12:00 Interval history: pod 1 doing well. NO CALF PAIN. DENIES ANY NUMBNESS OR TINGLING IN THE FOOT. Exam Extrem: Other: VSS AFEBRILE DRESSING WITH MILD DRAINAGE, SOME MILD WEAKNESS WITH TIB ANT DORSIFLEXION. EHL AND COMMON EXT LESSER TOES 5/5, GOOD EVERSION. NO DECREASED SENSATION TO THE FOOT, OTHERWISE NV INTACT NEG HOMANS SIGN CALF AND THIGH NON TENDER Objective Data Vital Signs Vital Signs: Vital Signs - 24 hr 10/02/23 14:40 10/02/23 14:55 10/02/23 15:10 Temperature 36.9 C Pulse Rate 85 77 82 Respiratory Rate 18 14 12 Blood Pressure 150/69 H 129/69 156/80 H Pulse Oximetry 100 100 99 Oxygen Delivery Simple Face Mask Simple Face Mask Room Air Oxygen Flow Rate 8 6 10/02/23 15:25 10/02/23 15:40 10/02/23 15:55 Temperature Pulse Rate 77 80 74 Respiratory Rate 14 16 16 Blood Pressure 146/62 H 146/62 H 153/70 H Pulse Oximetry 98 100 98 Oxygen Delivery Room Air Room Air Room Air Oxygen Flow Rate 10/02/23 15:57 10/02/23 16:34 10/02/23 16:34 Temperature 35.8 C L 35.8 C L Pulse Rate 81 77 Respiratory Rate 16 16 Blood Pressure 167/63 H 145/57 H Pulse Oximetry 100 100 98 Oxygen Delivery Room Air Oxygen Flow Rate 10/02/23 16:42 10/02/23 18:08 10/02/23 19:44 Temperature 36.0 C L 36.1 C L Pulse Rate 69 84 84 Respiratory Rate 16 16 16 Blood Pressure 149/94 H 159/61 H Pulse Oximetry 99 99 99 Oxygen Delivery Room Air Oxygen Flow Rate 10/02/23 20:56 10/02/23 23:55 10/02/23 23:59 Temperature 36.1 C L 36.1 C L 36.1 C L Pulse Rate 78 79 79 Respiratory Rate 20 20 20 Blood Pressure 127/68 125/57 L 125/57 L Pulse Oximetry 98 98 98 Oxygen Delivery Oxygen Flow Rate 10/02/23 23:58 10/03/23 04:03 10/03/23 07:43 Temperature 36.1 C L 36.1 C L Pulse Rate 97 75 Respiratory Rate 20 18 Blood Pressure 125/57 L 142/65 H Pulse Oximetry 98 98 Oxygen Delivery Room Air Oxygen Flow Rate 10/03/23 08:51 10/03/23 09:42 Temperature 36.5 C Pulse Rate 61 Respiratory Rate 16 Blood Pressure 131/50 L Pulse Oximetry 98 100 Oxygen Delivery Room Air Oxygen Flow Rate Intake/Output Intake/Output: Intake & Output 09/30/23 10/01/23 10/02/23 10/03/23 23:59 23:59 23:59 23:59 Intake Total 540 680 Output Total 300 Balance 540 380 Meds/Results Medications: Active Medications Generic Name Dose Route Start Last Admin Trade Name Freq PRN Reason Stop Dose Admin Acetaminophen 1,000 mg 10/02/23 15:57 10/03/23 04:03 Acetaminophen 500 Mg Tablet PO 1,000 mg Q6H PRN Administration Pain Rated 1-3 Aspirin 325 mg 10/02/23 21:00 10/03/23 08:51 Aspirin 325 Mg Enteric Tablet PO 325 mg Q12HR STEVAN Administration Diazepam 5 mg 10/02/23 15:57 Diazepam (*Crx) 5 Mg Tablet PO Q8H PRN Spasms Diphenhydramine HCl 25 mg 10/02/23 15:57 Diphenhydramine Hcl Inj 50 Mg/Ml Vial IV PUSH Q6H PRN Itching Famotidine 20 mg 10/02/23 21:00 10/03/23 08:51 Famotidine 20 Mg Tablet PO 20 mg Q12HR STEVAN Administration Cefazolin Sodium 2 gm in 50 mls @ 100 mls/hr 10/02/23 20:00 10/03/23 11:26 Ancef 2 Gm/D5w 50 Ml
[2023-10-03 13:42] VITALS: BP 132/55; PULSE 97; RESP 14; TEMP 36.7; O2SAT 100
--- NOTE | 2023-10-03 13:59 | PM.DS ---
DS: Admitting Diagnosis Discharge Date 10/03/23 Admitting Diagnosis LEFT KNEE DJD DS: Discharge Diagnosis Discharge Diagnosis (1) Left knee DJD: Qualifiers: Osteoarthritis type: primary Qualified Code(s): M17.12 - Unilateral primary osteoarthritis, left knee Code(s): M17.12 - Unilateral primary osteoarthritis, left knee Status: Acute (2) Multiple sclerosis: Code(s): G35 - Multiple sclerosis Status: Acute DS: Summary Hospital Course Reason for hospitalization: LEFT TKA Hospital Course: PATIENT WAS ADMITTED S/P TOTAL KNEE ARTHROPLASTY FOR POSTOPERATIVE MEDICAL MANAGEMENT, PAIN CONTROL AND MOBILIZATION WITH PHYSICAL AND OCCUPATIONAL THERAPY. THE PATIENT PROGRESSED WELL WITH PT/OT. LABS AND VITALS REMAINED STABLE AND PAIN WELL CONTROLLED. THE PATIENT HAS BEEN CLEARED TO BE DISCHARGED HOME AFTER HER LAST PT SESSION. FOLLOW UP APPOINTMENT SCHEDULED. DISCHARGE INSTRUCTIONS DISCUSSED AT LENGTH WITH THE PATIENT. MEDICATIONS REVIEWED. Status at Discharge Cognitive/behavioral status at discharge: STABLE Time Spent with Patient Time attestation: Total time spent providing and/or coordinating discharge services: DS: Data Data Completed and Pending Labs on day of discharge: Labs from last 24 hours 10/03/23 05:28 WBC 16.0 H RBC 3.63 L Hgb 11.0 L Hct 35.3 L MCV 97.2 MCH 30.3 MCHC 31.2 L RDW 13.4 Plt Count 286 MPV 11.3 H Immature Gran % (Auto) 0.4 Neut % (Auto) 79.4 H Lymph % (Auto) 10.4 L Motley % (Auto) 9.6 H Eos % (Auto) 0.0 Baso % (Auto) 0.2 Lymph # (Auto) 1.66 Motley # (Auto) 1.5 H Eos # (Auto) 0.0 Baso # (Auto) 0.0 Abs Immat Gran (auto) 0.06 H Absolute Neuts (auto) 12.7 H Absolute Nucleated RBC 0.0 Nucleated RBC % 0.0 Sodium 138 Potassium 4.1 Chloride 105 Carbon Dioxide 21 L Anion Gap 12 BUN 16 Creatinine 0.60 L Estim Creat Clear Calc 57 Estimated GFR > 60 Glucose 119 H Calcium 9.2 Procedures/Treatments: LEFT TKA Discharge Plan Discharge Patient Disposition: Home Health Service Discharge Instructions: Per Care Coordination, patient to discharge with [facility] ( [phone]) for PT/OT and group home services. Agency will call to schedule initial visit NALLELY ELKINS M.D. [facility] [address] [place] [address] POST OPERATIVE DISCHARGE INSTRUCTIONS FOLLOWING TOTAL KNEE REPLACEMENT SURGERY ? Your dressing will be changed prior to your discharge. You will be sent home with one additional dressing to be changed on post op day 7 by the home health RN. Your ines will be removed on the 14th day after surgery and steri-strips will be placed. Please practice good hand hygiene and do not touch your incision in order to prevent infection. ? You may shower with your dressing but do not submerge in a bath tub. ? Do not drive or operate machinery until you are released by Dr. Elkins. ? Do not walk without a walker for any reason until you are released by Dr. Elkins. ? Continue to use your ice machine. Please use a towel or pillow case to protect your skin before applying your ice machine. ? Do NOT place a pillow under your knee. You may use a pillow from the calf down if needed. This will prevent a flexion contracture postoperatively. ? You may begin use of your CPM machine at home if you have been given one pre-operatively. DO NOT USE WHILE YOU ARE SLEEPING. ? Your first post op appointment was sent to you via mail preoperatively. If you have any questions or are unable to make your appointment, please contact our office for scheduling questions. ? Your medications have been sent to your pharmacy. You have been sent home with pain medication. We have also sent you with a stool softener as narcotics can cause constipation. Please keep this in mind during your posto
== END 2023-10-03 16:00 | disposition home health service (06) ==
LOC: ANHSURGERY 09:47 → ANH2MED 16:06
PROVIDERS: Visit Provider Orthopaedic Surgery
PROC: (CPT 27447; principal; 2023-10-02 12:00)
DX: M17.12 Unilateral primary osteoarthritis, left knee (principal); G35 Multiple sclerosis
CPT/HCPCS: 27447; 36415; 73560; 80048; 80307; 82040; 83036; 85025; 85610; 85730; 86850; 86900; 86901; 87081; 97110; 97116; 97161; 97165; 97530; 97535; A9270; C1713; C1776; J0171; J0690; J1100; J1885; J2270; J2405; J2704; J2795; J3010; J3370; J7030; J7120

== ENCOUNTER 2024-09-20 09:15 | Emergency (ER) | payer MEDICARE, SELFPAY ==
[2024-09-20 09:37] VITALS: BP 135/48; PULSE 97; RESP 16; TEMP 36.6; O2SAT 98
[2024-09-20 09:55] LABS: EDUAAPPEAR Clear; EDUABILI Negative (Negative); EDUABLOOD Trace (Negative); EDUACOLOR1 Yellow; EDUAGLUCOSE Negative (Negative); EDUAKETONE Negative (Negative); EDUALEUKO 1+ (Negative); EDUANITRATE Positive (Negative); EDUAPH 6.5; EDUAPROTEIN Negative (Negative); EDUAUROBILI 0.2
--- NOTE | 2024-09-20 10:04 | ED.BACK ---
HPI - Back Pain/Injury General Chief Complaint: Back Pain/Injury Stated Complaint: back pain Time Seen by Provider: 09/20/24 09:43 Source: patient and RN notes reviewed Mode of arrival: ambulatory Limitations: no limitations History of Present Illness HPI Narrative: Patient presents today complaining of left low back pain worse since last night. Patient states also that she has had some urinary frequency worse than at her baseline. Denies dysuria, abdominal pain, hematuria. She has taken some Tylenol without any appreciable relief. Related Data Home Medications Medication Instructions Recorded Confirmed calcium carbonate (Calcium 600) 600 mg PO BID 11/03/21 09/20/24 lovastatin 40 mg tablet 40 mg PO HS 11/03/21 09/20/24 mecobalamin (vitamin B12) 1,000 2,000 mcg PO EVERY OTHER DAY 11/03/21 09/20/24 mcg chewable tablet (B12 Active) teriflunomide 14 mg tablet 14 mg PO DAILY 10/02/23 09/20/24 Allergies Allergy/AdvReac Type Severity Reaction Status Date / Time Penicillins AdvReac Mild Rash Verified 09/20/24 09:18 Review of Systems Review of Systems: CONSTITUTIONAL: Denies body aches, fever, chills, or sweats. EYES: Denies visual changes, redness, or discharge. ENT: Denies rhinorrhea, congestion, sore throat, or otalgia. CARDIOVASCULAR: Denies chest pain, palpitations, or edema. RESPIRATORY: Denies cough or dyspnea. GASTROINTESTINAL: Denies abdominal pain, nausea, vomiting, or diarrhea. GENITOURINARY: Denies dysuria or hematuria. SKIN: Denies rash, itching, or wounds. MUSCULOSKELETAL: Denies joint pain, or myalgia.+ left low back pain NEUROLOGIC: Denies headache, numbness, tingling, or weakness. PSYCH: Denies depression or anxiety. PMFSH Past Medical History Medical History Left knee DJD Multiple sclerosis Social History Social History Smoking status: Never smoker Additional smoking assessment comments: DENIES ANY FORM OF TOBACCO USE Alcohol intake: never Drinks per week: 3 Substance use: never Lack of Transportation: No Lack of Food: Never True Current Housing: I Have Housing Concerned About Future Housing: No Difficulty Paying Gas/Electric Bills: No Difficulty Paying for Meds: No Currently Unemployed: No Education: Decline to Answer Difficulty w/ Childcare or Family Care: No Living arrangements: with family Occupation/Education: retired 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 Gender identity (if verbalized by the patient): Female Spiritual care concerns: No Comments At time of signature, I have reviewed and agree with nursing past medical, surgical, social and family history unless otherwise noted. Please see nursing chart for further information. There is no relevant family history pertinent to the presenting complaint Exam Narrative: GENERAL: Well-appearing, well-nourished, and in no acute distress. HEAD: Normocephalic, atraumatic. EYES: EOMI. No redness or drainage. Conjunctivae normal. ENT: Mucous membranes pink and moist. NECK: Normal AROM. CHEST: No respiratory distress. Clear to auscultation. HEART: Regular rate and rhythm. No murmur appreciated. ABDOMEN: Soft, nontender, nondistended, normal active bowel sounds. MUSCULOSKELETAL: No bony tenderness. Mild tenderness to the left lower lumbar paraspinal muscles. EXTREMITIES: Normal range of motion. No edema. SKIN: Warm, dry, no rash. Capillary refill normal. Normal skin turgor. NEURO: No focal deficits. Alert and oriented x3. Gait steady. PSYCH: Normal affect. No signs of depression or anxiety. Course Course Level of Care: Express Care Visit Vital Signs Vital signs: Vital Signs Temperature 97.9 F 09/20/24 09:37 Pulse Rate 97 09/20/24 09:37 Respiratory Rate 16 09/20/24 09:37 Blood Pressure 135/48 L 09/20/24 09:37 Pulse Oximetry 98 09/20/24 09:37 Oxygen Delivery Room Air 09/20/24 09:37 Temperature 97.9 F 09/20/24 09:37 Pulse Rate 97 09/20/24 09:37 Respiratory Rate 16 09/20/24 09:37 Blood Pressure 135/48 L 09/20/24 09:37 Pulse Oximetry 98 09/20/24 09:37 Oxygen Delivery Room Air 09/20/24 09:37 Reviewed MDM - Back Pain/Injury MDM Narrative Medical decision making narrative: Urinalysis consistent with UTI. Prescription for Keflex sent to pharmacy. Anticipatory guidance given. ED precautions given. Differential Diagnosis Differential diagnosis: Likely lumbar radiculopathy, strain of lumbar region and other (UTI) Lab Data Attestation: I reviewed the patient's lab results. Labs: Lab Results 09/20/24 Range/Units 09:53 POC Urine Color Yellow POC Urine Clarity Clear POC Urine pH 6.5 POC Ur Specif [place] 1.020 POC Urine Protein Negative (Negative) POC Ur Glucose (UA) Negative (Negative) POC Urine Ketones Negative (Negative) POC Urine Blood Trace (Negative) POC Urine Nitrite Positive (Negative) POC Urine Bilirubin Negative (Negative) POC Urine Urobilinogen 0.2 POC U Leukocyte Esteras 1+ (Negative) Critical Care Time Critical Care Time Critical Care Time: No Discharge Plan Discharge Clinical Impression: Acute UTI Patient Disposition: Home, Self-Care Condition: Stable Instructions: Antibiotic Form, Urinary Tract Infection in Older Adults (ED) Additional Instructions: Your urine shows infection today. Take Keflex as prescribed until gone. Your urine will be sent of for a culture to identify what type of bacteria is causing your infection. If the culture shows that your medication will not get rid of your infection, you will be notified and a new antibiotic will be called in for you. If your symptoms worsen to include fever, sweats, chills, nausea, vomiting, severe abdominal or back pain, please go to the ER for further evaluation. Your blood pressure was elevated above 120/80 today at Urgent Care. This puts you above the threshold for follow up. Please schedule a followup visit with your personal physician as soon as possible, for further evaluation and treatment. Even blood pressure exceeding 120/80 may indicate pre-hypertension. Prescriptions: New cephalexin 500 mg capsule 500 mg PO Q6H 7 Days Qty: 28 0RF No Action lovastatin 40 mg tablet 40 mg PO HS calcium carbonate [Calcium 600] 600 mg calcium (1,500 mg) tablet 600 mg PO BID B12 Active 1,000 mcg tablet,chewable 2,000 mcg PO EVERY OTHER DAY Rx Instructions: 2,000 mcg PO 4x/ week; Sunday, Sunday, , Sunday teriflunomide 14 mg tablet 14 mg PO DAILY Follow-up/Referrals: Chiara,TREY Dailey [Primary Care Provider] - Time of Disposition: 10:07
== END 2024-09-20 10:09 | disposition home or self-care (01) ==
PROVIDERS: Emergency Provider Nurse Practitioner; PCP Physician Assistant
DX: N39.0 Urinary tract infection, site not specified (principal); B96.20 Unspecified Escherichia coli [E. coli] as the cause of diseases classified elsewhere; G35 Multiple sclerosis; M17.12 Unilateral primary osteoarthritis, left knee
CPT/HCPCS: 81003; 87086; 87186; 99213; G0463